=== PATIENT | female | born 2000 | race Caucasian/White ===

== ENCOUNTER 2019-11-29 17:56 | Emergency (ER) | payer MEDICAID ==
[~2019-11-29 17:56] MED LIST: BUPR-173 PO; BUSP5TAB2 PO; DOXAPIN PO; FLUO40CA2 PO; PRAZ2CAP2 PO; TRAZ-175 PO
[2019-11-29 18:10] VITALS: BP 140/78
--- NOTE | 2019-11-29 18:14 | NUR ---
BRANDY LISA FROM [facility] FOR SI. PT HAS BEEN TAKING SEVERAL 600 AND 800MG IBUPROFEN FOR THE PAST FEW DAY. PT STATES TODAY SHE "FELT LIKE TAKING A KNIFE TO MY THROAT". ROOM SECURE. BELONGINGS PLACED INTO 1 BAG AND INTO LOCKER. PT IN DIRECT SIGHT OF SITTER.
--- NOTE | 2019-11-29 18:27 | NUR ---
TASK RN: PT AMBULATORY WITH STEADY GAIT TO BATHROOM.
--- NOTE | 2019-11-29 18:32 | NUR ---
TASK RN: PT BACK TO ROOM. UA TO LAB. EDMD BEDSIDE
[2019-11-29 19:33] LABS: BASOPHILS % (AUTO) 1 % (0-1); EOSINOPHILS # (AUTO) 0.47 x10^3/uL (0-0.8); EOSINOPHILS % (AUTO) 4 % (1-7); LYMPHOCYTES # (AUTO) 3.18 x10^3/uL (1-6.1); LYMPHOCYTES % (AUTO) 26 % (22-44); MD NO; MEAN CORPUSCULAR HEMOGLOBIN 28.2 pg (27.0-34.8); MEAN CORPUSCULAR HGB CONC 32.1 g/dL (32.4-35.8); MEAN CORPUSCULAR VOLUME 87.9 fL (80-100); MEAN PLATELET VOLUME 8.2 fL (7.4-10.4); MONOCYTES # (AUTO) 1.21 x10^3/uL (0-1.4); MONOCYTES % (AUTO) 10 % (2-9); NEUTROPHILS # (AUTO) 7.43 x10^3/uL (1.8-8.0); NEUTROPHILS % (AUTO) 60 % (42-75); PLATELET COUNT 482 x10^3/uL (130-400); RED BLOOD COUNT 4.81 x10^6/uL (3.82-5.3); RED CELL DISTRIBUTION WIDTH 13.8 % (9.6-15.2)
[2019-11-29 19:44] LABS: ALANINE AMINOTRANSFERASE 18 U/L (12-78); ALBUMIN 3.4 g/dL (3.4-5.0); ANION GAP 6 mmol/L (5-15); CALCIUM 8.9 mg/dL (8.5-10.1); CHLORIDE 111 mmol/L (98-107); CREATININE 0.67 mg/dL (0.55-1.02)
--- NOTE | 2019-11-29 19:45 | NUR ---
PT SITTING ON TALAT. YE. PT IN DIRECT SIGHT OF SITTER.
[2019-11-29 19:46] LABS: AMPHETAMINE SCREEN, URINE Negative (Negative); BARBITURATE SCREEN, URINE Negative (Negative); BENZODIAZEPINE SCREEN, URINE Negative (Negative); CANNABINOID SCREEN, URINE Negative (Negative); COCAINE SCREEN, URINE Negative (Negative); METHADONE SCREEN, URINE Negative (Negative); OPIATE SCREEN, URINE Negative (Negative)
[2019-11-29 19:55] LABS: ALKALINE PHOSPHATASE 100 U/L (45-117); BILIRUBIN,TOTAL 0.1 mg/dL (0.2-1.0)
[2019-11-29 19:56] LABS: SALICYLATE LEVEL < 1.7 mg/dL (2.8-20.0)
--- NOTE | 2019-11-29 21:03 | NUR ---
PT TALKING TO TELEPSYCH AT THIS TIME.
--- NOTE | 2019-11-29 21:41 | NUR ---
PT STATES THAT HER VISION "JUST FREDDY'T BLURRY". NOTIFIED. VA'S DONE AND NOTED IN FILE. TO SEE.
--- NOTE | 2019-11-29 23:04 | NUR ---
REPORT GIVEN TO JARON MEYER.
--- NOTE | 2019-11-29 23:09 | NUR ---
MESERET RN: PACKET FAXED TO [facility], [facility], [facility], AND [facility] IS AWARE OF PATIENT.
--- NOTE | 2019-11-29 23:14 | NUR ---
TP: PACKET FAXED TO [facility]
--- NOTE | 2019-11-29 23:18 | NUR ---
REPORT FROM BETSY ZUÑIGA. PT SLEEPING IN VIEW OF THE SITTER, RESPIRATIONS EVEN AND UNLABORED.
--- NOTE | 2019-11-29 23:19 | NUR ---
Dr. Soto accepted this referral for [facility].
--- NOTE | 2019-11-30 01:18 | NUR ---
REPORT GIVEN TO BETSY WESTFALL.
== END 2019-11-30 01:38 ==
LOC: ED 19:07
DX: R45.851 Suicidal ideations (principal); F39 Unspecified mood [affective] disorder
CPT/HCPCS: 36415; 80053; 80307; 84443; 85025; 99284

== ENCOUNTER 2019-11-29 23:28 | Inpatient (IN) | payer MEDICAID ==
[~2019-11-29] VITALS: Ht 162.6 cm; Wt 126.5 kg
[2019-11-30] MEDS ORDERED: ACETAMINOPHEN 325 MG TABLET PO PRN
[2019-11-30] MEDS ORDERED: DOCUSATE 100 MG CAPSULE PO PRN
[2019-11-30] MEDS ORDERED: BISACODYL 10 MG SUPP PR PRN
[2019-11-30] MEDS ORDERED: ONDANSETRON ODT 4 MG PO PRN
[2019-11-30] MEDS ORDERED: POLYETHYLENE GLYCOL 17 GM PACKET PO PRN
[2019-11-30 01:00] LABS: FREE T4 (FREE THYROXINE) 0.92 ng/dL (0.76-1.46)
[2019-11-30] MEDS ORDERED: PLEASE ENTER HEIGHT AND WEIGHT MC SCH (02:00)
[2019-11-30 02:30] VITALS: BP 91/64
[2019-11-30 07:00] VITALS: BP 124/80
[2019-11-30 07:36] LABS: CHOL/HDL RATIO 2.9; LDL/HDL RATIO 1.7 (0.5-3.0)
[2019-11-30] MEDS: BUSPIRONE 5 MG TABLET PO SCH ×2 (16:00→20:23)
[2019-11-30 20:06] VITALS: BP 112/74
[2019-11-30] MEDS ORDERED: PRAZOSIN 2 MG CAPSULE PO SCH (21:00)
[2019-12-01 05:22] LABS: MICROSCOPIC AUTO
[2019-12-01 07:00] VITALS: BP 126/80
[2019-12-01] MEDS: BUPROPION SR 150 MG TABLET PO SCH (09:13)
[2019-12-01] MEDS: FLUOXETINE HCL 20 MG CAPSULE PO SCH (09:13)
[2019-12-01] MEDS: LORATADINE 10 MG TABLET PO SCH (09:13)
[2019-12-01] MEDS: BUSPIRONE 5 MG TABLET PO SCH ×3 (09:13→19:17)
[2019-12-01] MEDS: NICOTINE 21 MG/24 HR PATCH.TD24 TD SCH (09:14)
[2019-12-01] MEDS: PANTOPRAZOLE 40MG TABLET PO SCH (16:17)
[2019-12-01] MEDS: PRAZOSIN 5 MG CAPSULE PO SCH (19:17)
[2019-12-01 19:34] VITALS: BP 155/95
[2019-12-02] MEDS: PANTOPRAZOLE 40MG TABLET PO SCH ×2 (05:50→16:24)
[2019-12-02 07:26] VITALS: BP 115/81
[2019-12-02] MEDS: LORATADINE 10 MG TABLET PO SCH (08:07)
[2019-12-02] MEDS: BUPROPION SR 150 MG TABLET PO SCH (08:08)
[2019-12-02] MEDS: FLUOXETINE HCL 20 MG CAPSULE PO SCH (08:08)
[2019-12-02] MEDS: BUSPIRONE 5 MG TABLET PO SCH ×3 (08:08→20:12)
[2019-12-02] MEDS: NICOTINE 21 MG/24 HR PATCH.TD24 TD SCH (08:11)
[2019-12-02 19:53] VITALS: BP 143/85
[2019-12-02] MEDS: PRAZOSIN 5 MG CAPSULE PO SCH (20:12)
[2019-12-03] MEDS: PANTOPRAZOLE 40MG TABLET PO SCH ×2 (05:51→16:31)
[2019-12-03 07:00] VITALS: BP 110/63
[2019-12-03] MEDS: FLUOXETINE HCL 20 MG CAPSULE PO SCH (09:10)
[2019-12-03] MEDS: BUSPIRONE 5 MG TABLET PO SCH ×3 (09:10→21:03)
[2019-12-03] MEDS: LORATADINE 10 MG TABLET PO SCH (09:10)
[2019-12-03] MEDS: BUPROPION SR 150 MG TABLET PO SCH ×2 (09:13→12:31)
[2019-12-03] MEDS: NICOTINE 21 MG/24 HR PATCH.TD24 TD SCH (09:14)
[2019-12-03 19:26] VITALS: BP 155/99
[2019-12-03] MEDS: PRAZOSIN 5 MG CAPSULE PO SCH (21:03)
[2019-12-04] MEDS: PANTOPRAZOLE 40MG TABLET PO SCH ×2 (05:33→16:38)
[2019-12-04 07:17] VITALS: BP 132/81
[2019-12-04] MEDS: BUPROPION SR 150 MG TABLET PO SCH ×2 (08:00→12:00)
[2019-12-04] MEDS: FLUOXETINE HCL 20 MG CAPSULE PO SCH (08:20)
[2019-12-04] MEDS: LORATADINE 10 MG TABLET PO SCH (08:21)
[2019-12-04] MEDS: BUSPIRONE 5 MG TABLET PO SCH ×3 (08:22→20:23)
[2019-12-04] MEDS: NICOTINE 21 MG/24 HR PATCH.TD24 TD SCH (08:35)
[2019-12-04 13:49] LABS: BASOPHILS # (AUTO) 0.08 x10^3/uL (0-0.3); BASOPHILS % (AUTO) 1 % (0-1); EOSINOPHILS # (AUTO) 0.21 x10^3/uL (0-0.8); EOSINOPHILS % (AUTO) 2 % (1-7); LYMPHOCYTES # (AUTO) 2.38 x10^3/uL (1-6.1); LYMPHOCYTES % (AUTO) 20 % (22-44); MD NO; MEAN CORPUSCULAR HEMOGLOBIN 28.2 pg (27.0-34.8); MEAN CORPUSCULAR HGB CONC 32.4 g/dL (32.4-35.8); MEAN CORPUSCULAR VOLUME 87.1 fL (80-100); MEAN PLATELET VOLUME 8.1 fL (7.4-10.4); MONOCYTES # (AUTO) 1.35 x10^3/uL (0-1.4); MONOCYTES % (AUTO) 11 % (2-9); NEUTROPHILS # (AUTO) 7.94 x10^3/uL (1.8-8.0); NEUTROPHILS % (AUTO) 66 % (42-75); PLATELET COUNT 441 x10^3/uL (130-400); RED BLOOD COUNT 4.96 x10^6/uL (3.82-5.3)
[2019-12-04] MEDS: NITROFURANTOIN (MACROBID) 100 MG CAPSULE PO SCH ×2 (16:38→20:23)
[2019-12-04 18:59] LABS: HCG UR SG 1.026 (1.003-1.030); MICROSCOPIC AUTO
[2019-12-04 19:52] VITALS: BP 125/84
[2019-12-04] MEDS: PRAZOSIN 5 MG CAPSULE PO SCH (20:23)
[2019-12-05] MEDS: PANTOPRAZOLE 40MG TABLET PO SCH ×2 (06:14→16:14)
[2019-12-05 07:16] VITALS: BP 127/75
[2019-12-05] MEDS: NITROFURANTOIN (MACROBID) 100 MG CAPSULE PO SCH ×2 (08:13→20:27)
[2019-12-05] MEDS: LORATADINE 10 MG TABLET PO SCH (08:13)
[2019-12-05] MEDS: FLUOXETINE HCL 20 MG CAPSULE PO SCH (08:13)
[2019-12-05] MEDS: BUSPIRONE 5 MG TABLET PO SCH ×3 (08:13→20:27)
[2019-12-05] MEDS: BUPROPION SR 150 MG TABLET PO SCH ×2 (08:13→12:25)
[2019-12-05] MEDS: NICOTINE 21 MG/24 HR PATCH.TD24 TD SCH (08:58)
[2019-12-05] MEDS ORDERED: LORazepam 1MG TABLET PO ONE ×2 (15:00)
[2019-12-05 19:45] VITALS: BP 125/76
[2019-12-05] MEDS: PRAZOSIN 5 MG CAPSULE PO SCH (20:27)
[2019-12-06] MEDS: PANTOPRAZOLE 40MG TABLET PO SCH ×2 (06:15→15:34)
[2019-12-06 07:14] VITALS: BP 124/78
[2019-12-06] MEDS: BUPROPION SR 150 MG TABLET PO SCH ×2 (08:24→11:35)
[2019-12-06] MEDS: FLUOXETINE HCL 20 MG CAPSULE PO SCH (08:24)
[2019-12-06] MEDS: NICOTINE 21 MG/24 HR PATCH.TD24 TD SCH (08:24)
[2019-12-06] MEDS: NITROFURANTOIN (MACROBID) 100 MG CAPSULE PO SCH ×2 (08:24→20:45)
[2019-12-06] MEDS: LORATADINE 10 MG TABLET PO SCH (08:24)
[2019-12-06] MEDS: BUSPIRONE 5 MG TABLET PO SCH ×3 (08:24→20:45)
[2019-12-06 19:52] VITALS: BP 126/84
[2019-12-06] MEDS: PRAZOSIN 5 MG CAPSULE PO SCH (20:46)
[2019-12-07] MEDS: PANTOPRAZOLE 40MG TABLET PO SCH ×2 (05:59→17:09)
[2019-12-07 07:24] VITALS: BP 118/79
[2019-12-07] MEDS: BUPROPION SR 150 MG TABLET PO SCH ×2 (08:16→11:40)
[2019-12-07] MEDS: BUSPIRONE 5 MG TABLET PO SCH ×3 (08:16→20:15)
[2019-12-07] MEDS: FLUOXETINE HCL 20 MG CAPSULE PO SCH (08:16)
[2019-12-07] MEDS: LORATADINE 10 MG TABLET PO SCH (08:16)
[2019-12-07] MEDS: NICOTINE 21 MG/24 HR PATCH.TD24 TD SCH ×2 (09:00→11:40)
[2019-12-07 19:45] VITALS: BP 139/89
[2019-12-07] MEDS: PRAZOSIN 5 MG CAPSULE PO SCH (20:15)
[2019-12-08] MEDS: PANTOPRAZOLE 40MG TABLET PO SCH ×2 (05:52→16:00)
[2019-12-08 07:26] VITALS: BP 103/70
[2019-12-08] MEDS: LORATADINE 10 MG TABLET PO SCH (08:15)
[2019-12-08] MEDS: BUPROPION SR 150 MG TABLET PO SCH ×2 (08:15→13:02)
[2019-12-08] MEDS: BUSPIRONE 5 MG TABLET PO SCH ×2 (08:15→16:57)
[2019-12-08] MEDS: FLUOXETINE HCL 20 MG CAPSULE PO SCH (08:15)
[2019-12-08] MEDS ORDERED: PANT40TA6 PO (12:29)
[2019-12-08] MEDS ORDERED: BUSP5TAB2 PO (12:29)
[2019-12-08] MEDS ORDERED: CLON0.1T22 PO (12:29)
[2019-12-08] MEDS ORDERED: NICO-487 TD (12:29)
[2019-12-08] MEDS ORDERED: FLUO20CA23 PO (12:29)
[2019-12-08] MEDS ORDERED: PRAZ5CAP2 PO (12:29)
[2019-12-08] MEDS ORDERED: LORA-247 PO (12:29)
[2019-12-08] MEDS ORDERED: BUPR150T73 PO (12:29)
== END 2019-12-08 15:45 | disposition home or self-care (01) | DRG 751 ==
LOC: 3E 11-30 01:41
PROVIDERS: ADMIT Psychiatry & Neurology Psychosomatic Medicine; ATTEND Psychiatry & Neurology Psychosomatic Medicine
DX: F33.2 Major depressive disorder, recurrent severe without psychotic features (principal); R45.851 Suicidal ideations; F60.3 Borderline personality disorder; F51.04 Psychophysiologic insomnia; F43.10 Post-traumatic stress disorder, unspecified; F41.1 Generalized anxiety disorder; K21.9 Gastro-esophageal reflux disease without esophagitis; Z79.899 Other long term (current) drug therapy; Z81.8 Family history of other mental and behavioral disorders; N39.0 Urinary tract infection, site not specified; F98.8 Other specified behavioral and emotional disorders with onset usually occurring in childhood and adolescence; F15.21 Other stimulant dependence, in remission; F11.21 Opioid dependence, in remission; E66.9 Obesity, unspecified; Z68.42 Body mass index [BMI] 45.0-49.9, adult
CPT/HCPCS: 36415; 71045; 80061; 81001; 81025; 82607; 84439; 85025; 87086; 87147; 93005; Q0177

== ENCOUNTER 2019-12-10 22:15 | Emergency (ER) | payer MEDICAID ==
[~2019-12-10] VITALS: Ht 162.6 cm; Wt 125.0 kg
[~2019-12-10 22:15] MED LIST changes: +BUPR150T73 PO; +CLON0.1T22 PO; +FLUO20CA23 PO; +LORA-247 PO; +NICO-487 TD; +PANT40TA6 PO; +PRAZ5CAP2 PO
--- NOTE | 2019-12-10 22:28 | NUR ---
THIS IS A 18Y F BIB EMS FROM [facility], PT WAS DC FROM [facility] 2 DAYS A[facility]. PT STS FEELING SUICIDAL AND "NO LONGER WANT TO LIVE" PT CUT L WRIST AND FOREARM (BANDAGE IN PLACE UPON ARRIVAL) PT ALSO TOOK 50MG OF PROZOSIN PT TAKES THIS FOR NIGHT TERRORS. PT ARRIVED ON LEGAL HOLD PER CLEMENTE BRYANT. PT CONNECTED TO MONITORING VSS AT THIS TIME.
--- NOTE | 2019-12-10 22:31 | NUR ---
1 BAG OF BELONGINGS LABELED AND PLACED IN BIN FOR ROOM 3. PT AWARE OF NEED FOR URINE SAMPLE AT THIS TIME.
--- NOTE | 2019-12-10 23:21 | NUR ---
PT RESTING ON [facility] SITTER AT [facility] FOR MONITORING AND SAFETY AT THIS TIME.
[2019-12-10 23:22] LABS: ALANINE AMINOTRANSFERASE 18 U/L (12-78); ALBUMIN 3.4 g/dL (3.4-5.0); ANION GAP 7 mmol/L (5-15); CHLORIDE 108 mmol/L (98-107)
--- NOTE | 2019-12-10 23:25 | NUR ---
TASK RN: PT RESTING ON TALAT, SARITA, DENIES ADDITIONAL NEEDS AT THIS TIME, SI PRECAUTIONS IN PLACE, SITTER IN LINE OF SIGHT. WCTM. MED REC COMPLETED
[2019-12-10] MEDS ORDERED: SODIUM CHLORIDE FLUSH 10ML SYR IVF ONE (23:30)
[2019-12-10] MEDS ORDERED: SODIUM CHLORIDE 0.9% 1,000ML IVBOLUS ONE (23:30)
[2019-12-10 23:35] LABS: ALKALINE PHOSPHATASE 118 U/L (45-117); BILIRUBIN,TOTAL 0.1 mg/dL (0.2-1.0); CREATININE 0.89 mg/dL (0.55-1.02); SALICYLATE LEVEL < 1.7 mg/dL (2.8-20.0); TOTAL PROTEIN 7.8 g/dL (6.4-8.2)
[2019-12-10 23:47] LABS: BASOPHILS # (AUTO) 0.07 x10^3/uL (0-0.3); BASOPHILS % (AUTO) 1 % (0-1); EOSINOPHILS % (AUTO) 2 % (1-7); LYMPHOCYTES # (AUTO) 3.63 x10^3/uL (1-6.1); LYMPHOCYTES % (AUTO) 25 % (22-44); MD NO; MEAN CORPUSCULAR HEMOGLOBIN 28.1 pg (27.0-34.8); MEAN CORPUSCULAR HGB CONC 32.2 g/dL (32.4-35.8); MEAN PLATELET VOLUME 9.5 fL (7.4-10.4); MONOCYTES % (AUTO) 8 % (2-9); NEUTROPHILS # (AUTO) 9.53 x10^3/uL (1.8-8.0); NEUTROPHILS % (AUTO) 65 % (42-75); PLATELET COUNT 415 x10^3/uL (130-400); RED BLOOD COUNT 4.48 x10^6/uL (3.82-5.3); RED CELL DISTRIBUTION WIDTH 13.5 % (9.6-15.2)
--- NOTE | 2019-12-11 01:47 | NUR ---
REPORT OF PT FROM BETSY MUHAMMAD, AND ASSUMING CARE OF PT AT THIS TIME. PT IS ASLEEP IN [facility] AT THIS TIME WITH SITTER OUTSIDE OF ROOM FOR DIRECT OBSERVATION OF PT; YE. ROOM IS SECURED FOR PT AND STAFF SAFETY AT THIS TIME.
--- NOTE | 2019-12-11 01:54 | NUR ---
HOSPITAL BED ORDERED AT THIS TIME
--- NOTE | 2019-12-11 02:45 | NUR ---
PT AWAKE AND COOPERATIVE WITH STAFF AT THIS TIME. PT PROVIDED URINE SAMPLE. URINE SAMPLE COLLECTED AND TUBED TO LAB AT THIS TIME. PT REQUESTING PAIN MEDICATION. DISCUSSED WITH PHYSICIAN AT THIS TIME.
[2019-12-11] MEDS ORDERED: ACETAMINOPHEN 325 MG TABLET ONE (02:56)
[2019-12-11] MEDS ORDERED: ACETAMINOPHEN 325 MG TABLET PO ONE (03:00)
--- NOTE | 2019-12-11 03:03 | NUR ---
PT MEDICATED PER MAR.
[2019-12-11 03:23] LABS: AMPHETAMINE SCREEN, URINE Negative (Negative); BARBITURATE SCREEN, URINE Negative (Negative); BENZODIAZEPINE SCREEN, URINE Negative (Negative); CANNABINOID SCREEN, URINE Negative (Negative); COCAINE SCREEN, URINE Negative (Negative); METHADONE SCREEN, URINE Negative (Negative); OPIATE SCREEN, URINE Negative (Negative)
--- NOTE | 2019-12-11 04:37 | NUR ---
PT ASLEEP IN [facility] AT THIS TIME WITH SITTER OUTSIE OF ROOM FOR DIRECT OBSERVATION OF PT. NADN. EQUAL BILATERAL RISE AND FALL OF CHEST NOTED AT THIS TIME.
[2019-12-11 04:46] VITALS: BP 102/62
--- NOTE | 2019-12-11 04:46 | NUR ---
PT VSS AND UPDATED IN EMR AT THIS TIME. HUMBERTO BURTON AT BS FOR WOUND CARE AT THIS TIME.
[2019-12-11] MEDS ORDERED: NEOSPORIN OINT. PKT 1 PACKET ONE (04:47)
--- NOTE | 2019-12-11 05:12 | NUR ---
THROUGHPUT RN: PACKET FAXED TO [facility], AND [facility]
--- NOTE | 2019-12-11 05:12 | NUR ---
THROUGHPUT RN: [facility] DECLINED PT AT THIS TIME.
--- NOTE | 2019-12-11 05:22 | NUR ---
Psychiatrist declined pt for re-admission at this time.
--- NOTE | 2019-12-11 05:54 | NUR ---
PT SWITCHED INTO HOSPITAL BED AT THIS TIME FROM [facility]. PT DENIES ANY OTHER NEEDS. SITTER OUTSIDE OF PT ROOM FOR DIRECT OBSERVATION OF PT AT THIS TIME.
--- NOTE | 2019-12-11 06:18 | NUR ---
PT SLEEPING IN [facility] AT THIS TIME; YE. SITTER OUTSIDE OF PT ROOM FOR DIRECT OBSERVATION OF PT.
--- NOTE | 2019-12-11 07:20 | NUR ---
[facility] RPT REC'D FROM BETSY ROBLES. PT SLEEPING IN HOSPITAL BED, RESP EVEN NON-LABORED. ROOM SECURED AND SITTER IN HALLWAY WITH PT IN DIRECT LINE OF SIGHT.
--- NOTE | 2019-12-11 09:03 | NUR ---
[facility] RPT TO EMS TRANSPORT TEAM. BELONGINGS BAG X 1 SENT WITH PT. PT AMBULATORY UPON D/C. NAD NOTED.
== END 2019-12-11 09:04 ==
LOC: ED 22:59
DX: T14.91XA Suicide attempt, initial encounter (principal); T44.6X1A Poisoning by alpha-adrenoreceptor antagonists, accidental (unintentional), initial encounter; F32.9 Major depressive disorder, single episode, unspecified; Y92.89 Other specified places as the place of occurrence of the external cause
CPT/HCPCS: 36415; 80053; 80307; 84703; 85025; 93005; 99285; J7030